=== PATIENT | male | born 1995 | race American Indian/Alaskan Native ===

== ENCOUNTER 2017-05-09 12:12 | Emergency (ER) | payer MEDICAID, OTHER ==
[2017-05-09] MEDS ORDERED: Lidocaine 1% 30 ML SDV INJECT ONE (12:38)
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
== END 2017-05-09 14:55 | disposition home or self-care (01) ==
LOC: DL.ED 12:12
DX: S01.01XA Laceration without foreign body of scalp, initial encounter (principal); S01.81XA Laceration without foreign body of other part of head, initial encounter; W51.XXXA Accidental striking against or bumped into by another person, initial encounter
CPT/HCPCS: 12002; 12011; 70450; 70486; 99283; 99284

== ENCOUNTER 2019-01-14 11:20 | Emergency (ER) | payer OTHER ==
[2019-01-14] MEDS ORDERED: HYDROmorphone 1 MG/ML Syringe IVPUSH ONE ×2 (11:40→14:43)
[2019-01-14] MEDS ORDERED: Sodium Chloride 0.9% 10 ML Syringe FLUSH PRN (11:40)
[2019-01-14] MEDS ORDERED: Sodium Chloride 0.9% 1,000 ML IV ONE (11:40)
[2019-01-14] MEDS ORDERED: Ondansetron 4 MG/2 ML SDV IV ONE (11:43)
[2019-01-14] MEDS ORDERED: Ondansetron 4 MG/2 ML SDV ONE (11:44)
--- NOTE | 2019-01-14 11:51 | EDM.PDOC ---
ED HPI GENERAL MEDICAL PROBLEM - General Chief Complaint: Abdominal Pain Stated Complaint: STOMACH PAIN Time Seen by Provider: 01/14/19 11:35 Source of Information: Reports: Patient, Family, RN, RN Notes Reviewed History Limitations: Reports: No Limitations - History of Present Illness INITIAL COMMENTS - FREE TEXT/NARRATIVE: Pt to ER with c/o epigastric pain, rated 9/10. Patient states he awoke this morning at 0900 from the pain in the epigastric area. Patient states he made himself vomit, thinking it would make him feel better, but it did not. Denies any recent illness. Denies cardiac history in himself or family. Denies drug or alcohol use. Denies radiation of the pain. Admits to nausea and recent fever, chills. Denies SOB. Denies any health problems, taking any medications, and any allergies. States he last ate last evening, [employer]. States he has had pain like this once before and it was when he had his appendix out. States he still has his gallbladder. Onset: Today, Sudden Duration: Constant, Getting Worse Location: Reports: Abdomen Quality: Reports: Sharp, Stabbing Severity: Severe Worsens with: Reports: None Associated Symptoms: Reports: Nausea/Vomiting Epigastric Pain Score (Numeric/FACES): 10 - Related Data Allergies Allergy/AdvReac Type Severity Reaction Status Date / Time No Known Allergies Allergy Verified 01/14/19 11:36 Home Meds: Home Meds . [No Known Home Meds] 05/09/17 [History] Past Medical History - Past Health History Medical/Surgical History: Denies Medical/Surgical History ED ROS GENERAL - Review of Systems Review Of Systems: ROS reveals no pertinent complaints other than HPI. ED EXAM, GI/ABD - Physical Exam Exam: See Below Exam Limited By: No Limitations General Appearance: Alert, WD/WN, Moderate Distress Eyes: Bilateral: Normal Appearance, EOMI Ears: Normal External Exam, Hearing Grossly Normal Nose: Normal Inspection Throat/Mouth: Normal Inspection Head: Atraumatic, Normocephalic Neck: Normal Inspection, Supple, Non-Tender, Full Range of Motion Respiratory/Chest: No Respiratory Distress, Lungs Clear, Normal Breath Sounds, No Accessory Muscle Use, Chest Non-Tender Cardiovascular: Normal Peripheral Pulses, Regular Rate, Rhythm, No Edema, No Gallop, No JVD, No Murmur, No Rub GI/Abdominal Exam: Soft, No Organomegaly, No Distention, No Abnormal Bruit, No Mass, Pelvis Stable, Tender (epigastric), Abnormal Bowel Sounds (hypoactive ) (Male) Exam: Deferred Rectal (Males) Exam: Deferred Back Exam: Normal Inspection, Full Range of Motion Extremities: Normal Inspection, Normal Range of Motion, Non-Tender, Normal Capillary Refill, No Pedal Edema Neurological: Alert, Oriented, CN II-XII Intact, Normal Cognition, Normal Gait, Normal Reflexes, No Motor/Sensory Deficits Psychiatric: Anxious Skin Exam: Cool, Diaphoretic, Pallor Lymphatic: No Adenopathy Course - Vital Signs Last Recorded V/S: Last Vital Signs Temp 96.5 F 01/14/19 11:20 Pulse 67 01/14/19 11:20 Resp 16 01/14/19 11:20 BP 133/80 01/14/19 11:20 Pulse Ox 100 01/14/19 11:20 - Orders/Labs/Meds Orders: Active Orders 24 hr Category Date Time Status EKG Documentation Completion [RC] STAT Care 01/14/19 11:39 Active Peripheral IV Care [RC] . DIRECTED Care 01/14/19 11:40 Active Chest 1V Frontal [CR] Stat Exams 01/14/19 11:57 Taken HYDROmorphone [Dilaudid] Med 01/14/19 14:43 Once 1 mg IVPUSH ONETIME ONE Potassium Chloride [Klor-Con 10] Med 01/14/19 14:42 Once 40 meq PO ONETIME ONE Sodium Chloride 0.9% [Saline Flush] Med 01/14/19 11:40 Active 10 ml FLUSH ASDIRECTED PRN Peripheral IV Insertion Adult [OM.PC] Stat Oth 01/14/19 11:39 Ordered Medication Orders Sodium Chloride (Saline Flush) 10 ml FLUSH ASDIRECTED PRN PRN Reason: Keep Vein Open Last Admin: 01/14/19 11:46 Dose: 10 ml Labs: Laboratory Tests 01/14/19 01/14/19 01/14/19 Range/Units 11:33 11:33 11:33 WBC 11.1 H (5.0-10.0) 10^3/uL RBC 5.49 (4.6-6.2) 10^6/uL Hgb 15.9 (14.0-18.0) g/dL Hct 47.1 (40.0-54.0) % MCV 85.8 (80-100) fL MCH 29.0 (27.0-34.0) pg MCHC 33.8 (33.0-35.0) g/dL Plt Count 380 (150-450) 10^3/uL Neut % (Auto) 67.9 (42.2-75.2) % Lymph % (Auto) 26.2 (20.5-50.1) % [place] % (Auto) 4.5 (2-8) % Eos % (Auto) 1.1 (1.0-3.0) % Baso % (Auto) 0.3 (0.0-1.0) % ESR 2 (0-15) mm/hr Sodium 139 (135-145) mmol/L Potassium 2.9 L (3.6-5.0) mmol/L Chloride 105 (101-111) mmol/L Carbon Dioxide 21.0 (21.0-31.0) mmol/L Anion Gap 15.9 BUN 14 (7-18) mg/dL Creatinine 0.9 (0.6-1.3) mg/dL Est Cr Clr Drug Dosing 129.55 mL/min Estimated GFR (MDRD) > 60 BUN/Creatinine Ratio 15.55 Glucose 139 H (74-105) mg/dL Calcium 9.0 (8.4-10.2) mg/dl Total Bilirubin 0.9 (0.2-1.0) mg/dL AST 40 (10-42) IU/L ALT 47 (10-60) IU/L Alkaline Phosphatase 86 (42-121) IU/L Troponin I < 0.02 (0.00-0.02) ng/ml C-Reactive Protein (0.0-1.3) mg/dL Total Protein 7.7 (6.7-8.2) g/dl Albumin 4.5 (3.2-5.5) g/dl Globulin 3.2 Albumin/Globulin Ratio 1.41 Amylase 63 (28-100) U/L Lipase 24 (22-51) U/L Urine Color (YELLOW) Urine Appearance (CLEAR) Urine pH (5.0-9.0) Ur Specific [place] (1.005-1.030) Urine Protein (NEGATIVE) Urine Glucose (UA) (NEGATIVE) Urine Ketones (NEGATIVE) Urine Occult Blood (NEGATIVE) Urine Nitrite (NEGATIVE) Urine Bilirubin (NEGATIVE) Urine Urobilinogen (0.2-1.0) mg/dL Ur Leukocyte Esterase (NEGATIVE) Urine Opiates Screen (NEGATIVE) Ur Oxycodone Screen (NEGATIVE) Urine Methadone Screen (NEGATIVE) Ur Barbiturates Screen (NEGATIVE) U Tricyclic Antidepress (NEGATIVE) Ur Phencyclidine Scrn (NEGATIVE) Ur Amphetamine Screen (NEGATIVE) U Methamphetamines Scrn (NEGATIVE) Urine MDMA Screen (NEGATIVE) U Benzodiazepines Scrn (NEGATIVE) Urine Cocaine Screen (NEGATIVE) U Marijuana (THC) Screen (NEGATIVE) Ethyl Alcohol < 5 mg/dL 01/14/19 01/14/19 01/14/19 Range/Units 11:33 14:16 14:16 WBC (5.0-10.0) 10^3/uL RBC (4.6-6.2) 10^6/uL Hgb (14.0-18.0) g/dL Hct (40.0-54.0) % MCV (80-100) fL MCH (27.0-34.0) pg MCHC (33.0-35.0) g/dL Plt Count (150-450) 10^3/uL Neut % (Auto) (42.2-75.2) % Lymph % (Auto) (20.5-50.1) % [place] % (Auto) (2-8) % Eos % (Auto) (1.0-3.0) % Baso % (Auto) (0.0-1.0) % ESR (0-15) mm/hr Sodium (135-145) mmol/L Potassium (3.6-5.0) mmol/L Chloride (101-111) mmol/L Carbon Dioxide (21.0-31.0) mmol/L Anion Gap BUN (7-18) mg/dL Creatinine (0.6-1.3) mg/dL Est Cr Clr Drug Dosing mL/min Estimated GFR (MDRD) BUN/Creatinine Ratio Glucose (74-105) mg/dL Calcium (8.4-10.2) mg/dl Total Bilirubin (0.2-1.0) mg/dL AST (10-42) IU/L ALT (10-60) IU/L Alkaline Phosphatase (42-121) IU/L Troponin I (0.00-0.02) ng/ml C-Reactive Protein < 0.5 (0.0-1.3) mg/dL Total Protein (6.7-8.2) g/dl Albumin (3.2-5.5) g/dl Globulin Albumin/Globulin Ratio Amylase (28-100) U/L Lipase (22-51) U/L Urine Color Yellow (YELLOW) Urine Appearance Clear (CLEAR) Urine pH 6.0 (5.0-9.0) Ur Specific [place] 1.015 (1.005-1.030) Urine Protein Negative (NEGATIVE) Urine Glucose (UA) Negative (NEGATIVE) Urine Ketones 40 H (NEGATIVE) Urine Occult Blood Negative (NEGATIVE) Urine Nitrite Negative (NEGATIVE) Urine Bilirubin Negative (NEGATIVE) Urine Urobilinogen 0.2 (0.2-1.0) mg/dL Ur Leukocyte Esterase Negative (NEGATIVE) Urine Opiates Screen Positive H (NEGATIVE) Ur Oxycodone Screen Negative (NEGATIVE) Urine Methadone Screen Negative (NEGATIVE) Ur Barbiturates Screen Negative (NEGATIVE) U Tricyclic Antidepress Negative (NEGATIVE) Ur Phencyclidine Scrn Negative (NEGATIVE) Ur Amphetamine Screen Negative (NEGATIVE) U Methamphetamines Scrn Negative (NEGATIVE) Urine MDMA Screen Negative (NEGATIVE) U Benzodiazepines Scrn Negative (NEGATIVE) Urine Cocaine Screen Negative (NEGATIVE) U Marijuana (THC) Screen Negative (NEGATIVE) Ethyl Alcohol mg/dL Meds: Medications Generic Name Dose Route Start Last Admin Trade Name Freq PRN Reason Stop Dose Admin Sodium Chloride 10 ml 01/14/19 11:40 01/14/19 11:46 Saline Flush FLUSH 10 ml ASDIRECTED PRN Administration Keep Vein Open Discontinued Medications Generic Name Dose Route Start Last Admin Trade Name Freq PRN Reason Stop Dose Admin Al Hydroxide/Mg Hydroxide 30 ml 01/14/19 13:05 01/14/19 13:29 Gi Cocktail PO 01/14/19 13:06 30 ml ONETIME ONE Administration Hydromorphone HCl 1 mg 01/14/19 11:40 01/14/19 11:45 Dilaudid IVPUSH 01/14/19 11:41 1 mg ONETIME ONE Administration Sodium Chloride 1,000 mls @ 999 mls/hr 01/14/19 11:40 01/14/19 11:45 Normal Saline IV 01/14/19 12:40 999 mls/hr .BOLUS ONE Administration Potassium Chloride 20 meq/ 100 mls @ 50 mls/hr 01/14/19 12:20 01/14/19 12:31 Premix IV 01/14/19 14:19 50 mls/hr ONETIME ONE Administration Iopamidol 100 ml 01/14/19 13:48 01/14/19 14:05 Isovue-300 (61%) IVPUSH 01/14/19 13:49 100 ml ONETIME ONE Administration Ondansetron HCl 4 mg 01/14/19 11:43 01/14/19 11:46 Zofran IV 01/14/19 11:44 4 mg ONETIME ONE Administration Ondansetron HCl Confirm 01/14/19 11:44 01/14/19 12:00 Zofran Administered 01/14/19 11:45 Not Given Dose 4 mg .ROUTE .Wanderio ONE - Radiology Interpretation Free Text/Narrative:: Chest xray: No acute findings Abdomen/Pelvis CT with contrast: Distended gallbladder. 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 No acute intraperitoneal abnormality See rad report Departure - Departure Time of Disposition: 14:43 Disposition: Home, Self-Care 01 Condition: Fair Clinical Impression: Cholecystitis - Discharge Information *PRESCRIPTION DRUG MONITORING PROGRAM REVIEWED*: No *COPY OF PRESCRIPTION DRUG MONITORING REPORT IN PATIENT RADHA: No Instructions: Cholecystitis, [id number], Abdominal Pain, Adult, [id number] Forms: ED Department Discharge Additional Instructions: Avoid greasy, fatty foods Drink plenty of water May use Tylenol and/or Ibuprofen as directed for pain Follow up in 2 weeks with your primary care facility for a gallbladder ultrasound and recheck of the Potassium level - My Orders Last 24 Hours: My Active Orders 01/14/19 11:39 EKG Documentation Completion [RC] STAT Peripheral IV Insertion Adult [OM.PC] Stat 01/14/19 11:40 Peripheral IV Care [RC] . DIRECTED Sodium Chloride 0.9% [Saline Flush] 10 ml FLUSH ASDIRECTED PRN 01/14/19 11:57 Chest 1V Frontal [CR] Stat 01/14/19 14:42 Potassium Chloride [Klor-Con 10] 40 meq PO ONETIME ONE 01/14/19 14:43 HYDROmorphone [Dilaudid] 1 mg IVPUSH ONETIME ONE - Assessment/Plan Last 24 Hours: My Active Orders 01/14/19 11:39 EKG Documentation Completion [RC] STAT Peripheral IV Insertion Adult [OM.PC] Stat 01/14/19 11:40 Peripheral IV Care [RC] . DIRECTED Sodium Chloride 0.9% [Saline Flush] 10 ml FLUSH ASDIRECTED PRN 01/14/19 11:57 Chest 1V Frontal [CR] Stat 01/14/19 14:42 Potassium Chloride [Klor-Con 10] 40 meq PO ONETIME ONE 01/14/19 14:43 HYDROmorphone [Dilaudid] 1 mg IVPUSH ONETIME ONE
[2019-01-14 12:06] LABS: ANION GAP 15.9; CHLORIDE,CL 105 mmol/L (101-111); SODIUM,NA 139 mmol/L (135-145)
[2019-01-14] MEDS ORDERED: Potassium Chloride 20 MEQ in Premix Bag 1 BAG IV ONE (12:20)
[2019-01-14] MEDS ORDERED: GI Cocktail Oral Solution 30 ML PO ONE (13:05)
[2019-01-14] MEDS ORDERED: Iopamidol 612 MG/ML 100 ML Bottle IVPUSH ONE (13:48)
--- NOTE | 2019-01-14 14:40 | CT ---
Clinical history: 23-year-old 259 pound male with epigastric pain and elevated white blood cell count (11,100). Scan technique: Volume acquisition of data from the abdomen and pelvis obtained without oral contrast but during intravenous infusion 100 cc nonionic Isovue (3 cc/s via injector) while the patient was lying supine on the Siemens multi slice scanner [place], [place]. All data archived in the PACS system for storage, reformatting axial/sagittal/coronal planes and study. Interpretation: 1. Gallbladder distended right upper quadrant is homogeneously dense and suggest considering elective sonogram. 2. Liver, stomach, spleen, pancreas, right adrenal gland and right kidney unremarkable (pelvic kidney on the left; cystic left adrenal gland). Symmetrically distended normal appearing urinary bladder. 3. No abdominal or pelvic mass lesion and no signs of inflammatory "dirty" peritoneal fat, abdominal/pelvic mass lesion, mesenteric/retroperitoneal lymphadenopathy, mechanical bowel obstruction, ascites or free intraperitoneal air. 4. Normal cardiac silhouette. Lung bases clear. Normal caliber aortoiliac vessels. Lumbar spine unremarkable. 5. No ventral wall or inguinal hernias. CONCLUSION: Distended gallbladder (significance?). 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 No acute intraperitoneal abnormality.
[2019-01-14] MEDS ORDERED: Potassium Chloride 10 MEQ Tab.ER PO ONE (14:42)
== END 2019-01-14 15:27 | disposition home or self-care (01) ==
LOC: DL.ED 11:20
DX: K81.9 Cholecystitis, unspecified (principal)
CPT/HCPCS: 36415; 71045; 74177; 80053; 80305; 81003; 82150; 83690; 84484; 85025; 85651; 86140; 93005; 96361; 96365; 96375; 96376; 99285; A4217; A9270; G0480; J1170; J2405; J3480; J7030; Q9967

== ENCOUNTER 2019-01-20 08:34 | Emergency (ER) | payer OTHER ==
[2019-01-20] MEDS ORDERED: Ondansetron 4 MG/2 ML SDV IV ONE (08:48)
[2019-01-20] MEDS ORDERED: Lactated Ringers 1,000 ML IV ONE (08:48)
[2019-01-20] MEDS ORDERED: HYDROmorphone 1 MG/ML Syringe IVPUSH ONE ×2 (08:49→12:01)
--- NOTE | 2019-01-20 08:54 | EDM.PDOC ---
ED HPI GENERAL MEDICAL PROBLEM - General Chief Complaint: Abdominal Pain Stated Complaint: GALLBLADDER Time Seen by Provider: 01/20/19 08:45 Source of Information: Reports: Patient History Limitations: Reports: No Limitations - History of Present Illness INITIAL COMMENTS - FREE TEXT/NARRATIVE: This 23 yo male patient reports to the ED with upper abdominal pain. The patient reports his pain got worse this morning at 0300. The patient rates his pain at a 9/10 at this time and describes it as a "burning" pain. The patient was seen in the ED 1 week ago with similar symptoms and diagnosed with an enlarged gallbladder. Since that visit, the patient reports he has had a dull ache in his upper abdomen. Last night, the patient reports he ate pizza at about midnight. The patient reports he did vomit after eating the pizza. The patient reports he took his potassium pill after his pain started at 0300 this morning. The patient did call the [facility], but they could not see him until 1030 this morning, so the patient came here. The patient denies any drug or alcohol use. Onset: Today Onset Date: 01/20/19 Onset Time: 03:00 Duration: Constant Location: Reports: Abdomen (Right upper quadrant) Quality: Reports: Ache, Burning Severity: Severe Improves with: Reports: None Worsens with: Reports: None Context: Reports: Other Associated Symptoms: Reports: Nausea/Vomiting Treatments CHANNELER: Reports: Other Medication(s) (Potassium (taken at 0300)) Epigastric Pain Score (Numeric/FACES): 9 - Related Data Allergies Allergy/AdvReac Type Severity Reaction Status Date / Time No Known Allergies Allergy Verified 01/20/19 08:40 Home Meds: Home Meds Potassium Chloride 40 meq PO DAILY 01/20/19 [History] Past Medical History - Past Health History Medical/Surgical History: Denies Medical/Surgical History ED ROS GENERAL - Review of Systems Review Of Systems: ROS reveals no pertinent complaints other than HPI. ED EXAM, GI/ABD - Physical Exam Exam: See Below Exam Limited By: No Limitations General Appearance: Alert, WD/WN, Moderate Distress, Obese Eyes: Bilateral: Normal Appearance, EOMI Ears: Normal External Exam, Normal Canal, Hearing Grossly Normal, Normal TMs Nose: Normal Inspection, Normal Mucosa, No Blood Throat/Mouth: Normal Inspection, Normal Lips, Normal Teeth, Normal Gums, Normal Oropharynx, Normal Voice, No Airway Compromise Head: Atraumatic, Normocephalic Neck: Normal Inspection, Supple, Non-Tender, Full Range of Motion Respiratory/Chest: No Respiratory Distress, Lungs Clear, Normal Breath Sounds, No Accessory Muscle Use, Chest Non-Tender Cardiovascular: Normal Peripheral Pulses, Regular Rate, Rhythm, No Edema, No Gallop, No JVD, No Murmur, No Rub GI/Abdominal Exam: Normal Bowel Sounds, No Organomegaly, No Distention, No Abnormal Bruit, No Mass, Pelvis Stable, Guarding, Rigid, Tender (Right upper quadrant) (Male) Exam: Deferred Rectal (Males) Exam: Deferred Back Exam: Normal Inspection, Full Range of Motion, NT Extremities: Normal Inspection, Normal Range of Motion, Non-Tender, Normal Capillary Refill, No Pedal Edema Neurological: Alert, Oriented, CN II-XII Intact, Normal Cognition, Normal Gait, Normal Reflexes, No Motor/Sensory Deficits Psychiatric: Normal Affect, Normal Mood Skin Exam: Warm, Dry, Intact, Normal Color, No Rash Lymphatic: No Adenopathy Course - Vital Signs Last Recorded V/S: Last Vital Signs Temp 37.2 C 01/20/19 11:55 Pulse 82 01/20/19 11:55 Resp 20 01/20/19 11:55 BP 129/80 01/20/19 11:55 Pulse Ox 99 01/20/19 11:55 - Orders/Labs/Meds Orders: Active Orders 24 hr Category Date Time Status HYDROmorphone [Dilaudid] Med 01/20/19 12:01 Once 1 mg IVPUSH ONETIME ONE Labs: Laboratory Tests 01/20/19 01/20/19 01/20/19 Range/Units 08:57 08:57 09:07 WBC (5.0-10.0) 10^3/uL RBC (4.6-6.2) 10^6/uL Hgb (14.0-18.0) g/dL Hct (40.0-54.0) % MCV (80-100) fL MCH (27.0-34.0) pg MCHC (33.0-35.0) g/dL Plt Count (150-450) 10^3/uL Neut % (Auto) (42.2-75.2) % Lymph % (Auto) (20.5-50.1) % [place] % (Auto) (2-8) % Eos % (Auto) (1.0-3.0) % Baso % (Auto) (0.0-1.0) % Sodium (135-145) mmol/L Potassium (3.6-5.0) mmol/L Chloride (101-111) mmol/L Carbon Dioxide (21.0-31.0) mmol/L Anion Gap BUN (7-18) mg/dL Creatinine (0.6-1.3) mg/dL Est Cr Clr Drug Dosing mL/min Estimated GFR (MDRD) BUN/Creatinine Ratio Glucose (74-105) mg/dL Lactic Acid (0.5-2.2) mmol/L Calcium (8.4-10.2) mg/dl Total Bilirubin (0.2-1.0) mg/dL AST (10-42) IU/L ALT (10-60) IU/L Alkaline Phosphatase (42-121) IU/L Total Protein (6.7-8.2) g/dl Albumin (3.2-5.5) g/dl Globulin Albumin/Globulin Ratio Amylase 51 (28-100) U/L Lipase 22 (22-51) U/L Urine Color Dark yellow (YELLOW) Urine Appearance Clear (CLEAR) Urine pH 5.5 (5.0-9.0) Ur Specific Hickman >= 1.030 (1.005-1.030) Urine Protein 30 H (NEGATIVE) Urine Glucose (UA) Negative (NEGATIVE) Urine Ketones 15 H (NEGATIVE) Urine Occult Blood Negative (NEGATIVE) Urine Nitrite Negative (NEGATIVE) Urine Bilirubin Negative (NEGATIVE) Urine Urobilinogen 0.2 (0.2-1.0) mg/dL Ur Leukocyte Esterase Negative (NEGATIVE) Urine RBC 0-5 /HPF Urine WBC Not seen (0-5/HPF) /HPF Ur Epithelial Cells Rare (NOT SEEN) /HPF Amorphous Sediment Few (NOT SEEN) /HPF Urine Bacteria Not seen (0-FEW/HPF) /HPF Urine Mucus Many H (NOT SEEN) /LPF Urine Opiates Screen Negative (NEGATIVE) Ur Oxycodone Screen Negative (NEGATIVE) Urine Methadone Screen Negative (NEGATIVE) Ur Barbiturates Screen Negative (NEGATIVE) U Tricyclic Antidepress Negative (NEGATIVE) Ur Phencyclidine Scrn Negative (NEGATIVE) Ur Amphetamine Screen Negative (NEGATIVE) U Methamphetamines Scrn Negative (NEGATIVE) Urine MDMA Screen Negative (NEGATIVE) U Benzodiazepines Scrn Negative (NEGATIVE) Urine Cocaine Screen Negative (NEGATIVE) U Marijuana (THC) Screen Negative (NEGATIVE) 01/20/19 01/20/19 01/20/19 Range/Units 09:07 09:07 09:07 WBC 16.9 H (5.0-10.0) 10^3/uL RBC 5.26 (4.6-6.2) 10^6/uL Hgb 15.4 (14.0-18.0) g/dL Hct 45.6 (40.0-54.0) % MCV 86.7 (80-100) fL MCH 29.3 (27.0-34.0) pg MCHC 33.8 (33.0-35.0) g/dL Plt Count 398 (150-450) 10^3/uL Neut % (Auto) 87.2 H (42.2-75.2) % Lymph % (Auto) 7.9 L (20.5-50.1) % [place] % (Auto) 4.4 (2-8) % Eos % (Auto) 0.3 L (1.0-3.0) % Baso % (Auto) 0.2 (0.0-1.0) % Sodium 135 (135-145) mmol/L Potassium 3.5 L (3.6-5.0) mmol/L Chloride 100 L (101-111) mmol/L Carbon Dioxide 22.0 (21.0-31.0) mmol/L Anion Gap 16.5 BUN 12 (7-18) mg/dL Creatinine 0.8 (0.6-1.3) mg/dL Est Cr Clr Drug Dosing 150.34 mL/min Estimated GFR (MDRD) > 60 BUN/Creatinine Ratio 15.00 Glucose 137 H (74-105) mg/dL Lactic Acid 1.3 (0.5-2.2) mmol/L Calcium 8.9 (8.4-10.2) mg/dl Total Bilirubin 0.8 (0.2-1.0) mg/dL AST 21 (10-42) IU/L ALT 37 (10-60) IU/L Alkaline Phosphatase 103 (42-121) IU/L Total Protein 8.1 (6.7-8.2) g/dl Albumin 4.3 (3.2-5.5) g/dl Globulin 3.8 Albumin/Globulin Ratio 1.13 Amylase (28-100) U/L Lipase (22-51) U/L Urine Color (YELLOW) Urine Appearance (CLEAR) Urine pH (5.0-9.0) Ur Specific [place] (1.005-1.030) Urine Protein (NEGATIVE) Urine Glucose (UA) (NEGATIVE) Urine Ketones (NEGATIVE) Urine Occult Blood (NEGATIVE) Urine Nitrite (NEGATIVE) Urine Bilirubin (NEGATIVE) Urine Urobilinogen (0.2-1.0) mg/dL Ur Leukocyte Esterase (NEGATIVE) Urine RBC /HPF Urine WBC (0-5/HPF) /HPF Ur Epithelial Cells (NOT SEEN) /HPF Amorphous Sediment (NOT SEEN) /HPF Urine Bacteria (0-FEW/HPF) /HPF Urine Mucus (NOT SEEN) /LPF Urine Opiates Screen (NEGATIVE) Ur Oxycodone Screen (NEGATIVE) Urine Methadone Screen (NEGATIVE) Ur Barbiturates Screen (NEGATIVE) U Tricyclic Antidepress (NEGATIVE) Ur Phencyclidine Scrn (NEGATIVE) Ur Amphetamine Screen (NEGATIVE) U Methamphetamines Scrn (NEGATIVE) Urine MDMA Screen (NEGATIVE) U Benzodiazepines Scrn (NEGATIVE) Urine Cocaine Screen (NEGATIVE) U Marijuana (THC) Screen (NEGATIVE) Meds: Medications Discontinued Medications Generic Name Dose Route Start Last Admin Trade Name Ivanq PRN Reason Stop Dose Admin Hydromorphone HCl 1 mg 01/20/19 08:49 01/20/19 09:05 Dilaudid IVPUSH 01/20/19 08:50 1 mg ONETIME ONE Administration Lactated Ringer's 1,000 mls @ 999 mls/hr 01/20/19 08:48 01/20/19 09:05 Ringers, Lactated IV 01/20/19 09:48 999 mls/hr .BOLUS ONE Administration Ondansetron HCl 4 mg 01/20/19 08:48 01/20/19 09:05 Zofran IV 01/20/19 08:49 4 mg ONETIME ONE Administration Departure - Departure Time of Disposition: 12:01 Disposition: DC/Tfer to [facility] 02 Condition: Fair Clinical Impression: Cholecystitis - Discharge Information *PRESCRIPTION DRUG MONITORING PROGRAM REVIEWED*: Not Applicable *COPY OF PRESCRIPTION DRUG MONITORING REPORT IN PATIENT RADHA: Not Applicable Forms: Interfacility Transfer EMTALA Care Plan Goals: Discussed the patient's history, examination, lab, ultrasound and CT results with Dr. Perera. Dr. Perera accepted the patient for continued evaluation and management as an inpatient at [facility] in [place]. The patient will be transported by [facility]. - My Orders Last 24 Hours: My Active Orders 01/20/19 12:01 HYDROmorphone [Dilaudid] 1 mg IVPUSH ONETIME ONE - Assessment/Plan Last 24 Hours: My Active Orders 01/20/19 12:01 HYDROmorphone [Dilaudid] 1 mg IVPUSH ONETIME ONE
[2019-01-20 09:37] LABS: ANION GAP 16.5; CHLORIDE,CL 100 mmol/L (101-111); SODIUM,NA 135 mmol/L (135-145)
--- NOTE | 2019-01-20 11:15 | US ---
Clinical history: 23-year-old 259 pound male with mid epigastric pain and elevated white blood cell count (16,900) reported have "distended gallbladder" CT exam 14 January 2019 (one week ago) when he presented with similar symptomatology (WBC 11,100). Appendectomy. Interpretation: Gallbladder distended right upper quadrant with a marginally thickened (3.5 mm) wall suggesting chronic inflammation. No current signs of pericystic fluid or edema however and no fixed intraluminal mucosal wall polyp. CBD 6 mm. Note: No discrete intraluminal echogenic "shadowing" gallstones but difficult to exclude noncalcified stones at the GB neck. Pancreas obscured by gas. 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 No ascites. CONCLUSION: Diseased gallbladder (no obvious stones).
== END 2019-01-20 12:20 ==
LOC: DL.ED 08:34
DX: K81.9 Cholecystitis, unspecified (principal)
CPT/HCPCS: 36415; 76705; 80053; 80305; 81001; 82150; 83605; 83690; 85025; 96361; 96374; 96375; 96376; 99285; J1170; J2405; J7120

== ENCOUNTER 2022-06-07 13:36 | Emergency (ER) | payer MEDICAID | END 2022-06-07 15:04 | disposition left against medical advice (07) | LOC: DL.ED 13:36 | DX: Z53.21 Procedure and treatment not carried out due to patient leaving prior to being seen by health care provider (principal) ==

== ENCOUNTER 2022-06-07 15:31 | Emergency (ER) | payer MEDICAID ==
[2022-06-07] MEDS ORDERED: Penicillin G Benzathine/Procaine 600-600 1.2 Millunits/2 ML Syringe IM ONE (15:58)
== END 2022-06-07 16:11 | disposition home or self-care (01) ==
LOC: DL.ED 15:31
DX: J02.0 Streptococcal pharyngitis (principal)
CPT/HCPCS: 96372; 99282; J0558

== ENCOUNTER 2022-09-04 08:30 | Emergency (ER) | payer MEDICAID ==
[2022-09-04] MEDS ORDERED: Sodium Chloride 0.9% 10 ML Syringe FLUSH PRN (08:32)
[2022-09-04] MEDS ORDERED: Lidocaine 1% 10 ML MDV INJECT ONE (08:33)
[2022-09-04] MEDS ORDERED: Bupivacaine 0.25% 10 ML SDV INJECT ONE (08:34)
[2022-09-04] MEDS ORDERED: Sodium Chloride 0.9% 1,000 ML IV ONE (08:37)
[2022-09-04] MEDS ORDERED: Lidocaine 1% 5 ML VIAL ONE (08:39)
[2022-09-04 09:18] LABS: ANION GAP 19.3 mEq/L (7-13)
[2022-09-04] MEDS ORDERED: Bacitracin Oint 1 GM U/D Packet TOP ONE (09:33)
[2022-09-04 10:19] LABS: AMPHETAMINES,URINE NEGATIVE (NEGATIVE); BARBITURATES,URINE NEGATIVE (NEGATIVE); BENZODIAZEPINE,URINE NEGATIVE (NEGATIVE); MDMA (ECSTASY), URINE NEGATIVE (NEGATIVE); METHADONE,URINE NEGATIVE (NEGATIVE); METHAMPHETAMINES,URINE NEGATIVE (NEGATIVE); OPIATES,URINE NEGATIVE (NEGATIVE); PHENCYCLIDINE,URINE NEGATIVE (NEGATIVE); TCA,URINE NEGATIVE (NEGATIVE)
[2022-09-04 10:20] LABS: OXYCODONE,URINE NEGATIVE (NEGATIVE)
== END 2022-09-04 11:24 | disposition home or self-care (01) ==
LOC: DL.ED 08:30
DX: S61.512A Laceration without foreign body of left wrist, initial encounter (principal); S61.511A Laceration without foreign body of right wrist, initial encounter; X78.8XXA Intentional self-harm by other sharp object, initial encounter
CPT/HCPCS: 12004; 12005; 36415; 80053; 80143; 80179; 80305-QW; 80307; 81001; 83735; 84443; 85025; 86900; 86901; 99284; 99285; A9270-GY; J3490